=== PATIENT | female | born 1975 | race Caucasian/White ===

== ENCOUNTER → 2020-05-26 12:03 | Outpatient (CLI) | payer OTHER, SELFPAY ==
--- NOTE | ~2020-05-26 | MM_ITS ---
EXAMINATION: MM screening [place] BI w magen HISTORY: Screening TECHNIQUE: Craniocaudal and mediolateral oblique 3-D tomosynthesis images were obtained and synthetic 2-D images were generated. CAD analysis was submitted and interpreted. COMPARISON: 04/15/2013 BREAST PARENCHYMAL COMPOSITION: There are scattered areas of fibroglandular density. FINDINGS: There is no evidence of suspicious mass, calcification, or architectural distortion to sugg est malignancy in either breast. There has been no suspicious interval change. IMPRESSION: 1. No mammographic evidence of malignancy. 2. Recommend routine screening mammography in one year. BI-RADS Category 1: Negative Reviewed, dictated and finalized at location A.
== END ==
PROVIDERS: Visit Provider Obstetrics & Gynecology
DX: Z12.31 Encounter for screening mammogram for malignant neoplasm of breast (principal)
CPT/HCPCS: 77063; 77067

== ENCOUNTER 2020-11-29 17:19 | Outpatient (CLI) | payer OTHER, SELFPAY | END 2020-11-29 17:20 | disposition home or self-care (01) | LOC: ANHCOVIDVC 17:20 | PROVIDERS: PCP Family Medicine | DX: Z23 Encounter for immunization (principal) | CPT/HCPCS: 0001A; 91300 ==

== ENCOUNTER 2020-12-20 17:16 | Outpatient (CLI) | payer OTHER, SELFPAY | END 2020-12-20 17:17 | disposition home or self-care (01) | LOC: ANHCOVIDVC 17:16 | PROVIDERS: PCP Family Medicine | DX: Z23 Encounter for immunization (principal) | CPT/HCPCS: 0002A; 91300 ==

== ENCOUNTER 2022-11-21 15:30 | Outpatient (RCR) | payer OTHER, SELFPAY | END 2022-11-21 17:27 | disposition home or self-care (01) | LOC: ANHDMC 15:30 | PROVIDERS: PCP Family Medicine; Visit Provider Nurse Practitioner Gerontology | DX: E11.9 Type 2 diabetes mellitus without complications (principal); Z71.89 Other specified counseling | CPT/HCPCS: G0108 ==

== ENCOUNTER 2022-12-25 00:20 | Day surgery (SDC) | payer OTHER, SELFPAY ==
[2022-12-08 15:37] VITALS: BMI 41.6
[2022-12-25 09:10] VITALS: BP 139/67; PULSE 75; RESP 18; TEMP 36.2; O2SAT 100; BMI 42.4
[2022-12-25] MEDS: LACTATED RINGERS 1,000 ML 150 ML IV CONT (09:30)
[2022-12-25 09:31] LABS: Glucose Point of Care 107 mg/dl (65-105)
--- NOTE | 2022-12-25 09:37 | PM.HPGS ---
History of Present Illness History of Present Illness Consent: Risks, benefits, and alternatives have been discussed and questions answered. Patient agrees to proceed with procedure. Chief complaint: neoplasm screening Narrative: Dayna Hammonds is a 47 year old female Presents for colonoscopy. Patient reports his current weight appetite and bowel movements are normal. Patient denies abdominal pain. She has had no bleeding. Patient's family history is significant mother had colon cancer. Patient's previous colonoscopy 2016 was unremarkable. Review of Systems Review of Systems: Review of systems noncontributory. [facility] Past Medical History Medical History Benign hypertension without CHF Diabetes mellitus Mixed hyperlipidemia Family History Family History Father Diabetes mellitus Hypertension Mother Diabetes mellitus Hypertension Carcinoma of colon Social History Social History (Updated 10/24/22 @ 15:55 by Elodia Obregon MA) Social History: Smoking status: Never smoker Second hand tobacco smoke exposure: No Alcohol intake: never Substance use: never Substance use type: does not use Living arrangements: with family Occupation/Education: occupation Additional occupation/education comments: customer service Gender identity (if verbalized by the patient): Female Sexual Orientation (if Verbalized by the Patient): Straight or Heterosexual Spiritual care concerns: No Meds Home Medications and Allergies Home Medications Medication Instructions Recorded Confirmed Type blood-glucose meter #1 ea 01/17/22 12/25/22 Rx blood sugar diagnostic (OneTouch #100 ea 01/25/22 12/25/22 Rx Ultra Test strips) lancets (OneTouch UltraSoft #200 ea 07/25/22 12/25/22 Rx Lancets) empagliflozin 10 mg tablet See Rx Instructions .Route 10/20/22 12/25/22 Rx (Jardiance) .COMPLEX #90 tabs atorvastatin 20 mg tablet 20 mg PO QHS #90 tabs 10/24/22 12/25/22 Rx blood sugar diagnostic (OneTouch #100 ea 10/24/22 12/25/22 Rx Verio test strips) blood-glucose meter (OneTouch #1 ea 10/24/22 12/25/22 Rx Verio Flex Meter) lisinopril 10 mg tablet See Rx Instructions .Route 11/24/22 12/25/22 Rx .COMPLEX #90 tabs Allergies Allergy/AdvReac Type Severity Reaction Status Date / Time No Known Allergies Allergy Mild Verified 12/25/22 09:15 Vital Signs Vital Signs - 24 hr 12/25/22 09:10 Temperature 97.1 F L Pulse Rate 75 Respiratory Rate 18 Blood Pressure 139/67 Pulse Oximetry 100 Oxygen Delivery Room Air Exam Narrative: Physical exam reveals patient to be alert. Vital signs stable. HEENT exam is unremarkable. Patient is anicteric. Lungs are clear to auscultation and percussion. Heart is without murmur or extra sounds. Abdomen bowel sounds are present soft nontender with no organomegaly. Digital external rectal exam is normal. Assessment and Plan Assessment and plan (1) Family history of colon cancer in mother: Code(s): Z80.0 - Family history of malignant neoplasm of digestive organs Status: Acute Assessment and Plan: Patient's mother has had colon cancer. For this reason screening colonoscopy is advised 5 year intervals. Further recommendations will be given after endoscopy.
[2022-12-25] MEDS: SIMETHICONE ORAL SUSPENSION 20 MG/0.3 ML 30 ML BOTTLE 0.6 ML IRRIGATION (10:36)
[2022-12-25 10:44] VITALS: BP 119/74; PULSE 88; RESP 20; O2SAT 97
[2022-12-25 10:54] VITALS: BP 127/71; PULSE 74; RESP 18; O2SAT 98
[2022-12-25 11:04] VITALS: BP 129/77; PULSE 76; RESP 18; O2SAT 99
== END 2022-12-25 11:13 | disposition home or self-care (01) ==
PROVIDERS: PCP Family Medicine; Visit Provider Internal Medicine Gastroenterology
PROC: 0DJD8ZZ Inspection of Lower Intestinal Tract, Via Natural or Artificial Opening Endoscopic (ICD-10-PCS; CPT 45378; principal; 2022-12-25 10:30)
DX: Z12.11 Encounter for screening for malignant neoplasm of colon (principal); K63.5 Polyp of colon; K64.8 Other hemorrhoids; Z80.0 Family history of malignant neoplasm of digestive organs; I10 Essential (primary) hypertension; E11.9 Type 2 diabetes mellitus without complications; E78.2 Mixed hyperlipidemia; Z79.84 Long term (current) use of oral hypoglycemic drugs
CPT/HCPCS: 45385; 82948; 88305; J2704; J7120

== ENCOUNTER 2023-06-27 08:38 | Outpatient (CLI) | payer OTHER, SELFPAY ==
--- NOTE | 2023-07-18 10:31 | WPDHOMESLEEP ---
Sleep Study - Home Unattended Date of Study: 06/27/23 Ordering Provider: Amita Eller PA-C Interpreting Provider: Nan Gale, DO Home Sleep Study Type: Watch PAT Height: 1.55 m Weight: 101.605 kg Body Mass Index: 42.3 Neck Circumference (inches): [address]: 1 Reason for Sleep Study Daytime hypersomnia, abnormal labs Sleep History Patient is a 47-year-old female with hypertension, hyperlipidemia, type 2 diabetes, seasonal allergies have morbid obesity that had a sleep study ordered by her primary care for evaluation of sleep apnea. The patient denies awakening from sleep short of breath. She rarely awakens at night with heartburn, belching cough. He frequently snores and is occasionally loud enough that others complain. She constantly has trouble sleeping when she has a cold. She denies waking gasping for air throughout the night. She rarely has breathing problems at night observed by herself or others. She denies sweating excessively at night. She denies having heart palpitations or irregular heartbeats during the night. She rarely falls asleep during the day but never while driving. She denies sleep paralysis, cataplexy and hypnagogic / hypnopompic hallucinations. She denies having trouble at school or work due to sleepiness. She denies feeling afraid of going to sleep. She rarely has nightmares. She occasionally remembers her dreams. She occasionally has thoughts racing through her mind. She rarely feels sad or depressed. She occasionally has anxiety. She rarely has muscular tension. She denies noticing parts of her body jerk. She denies kicking during the night. She denies having crawling and aching feelings her legs and denies having leg pain during the night. She occasionally grinds her teeth during sleep but never awakens with morning jaw pain. She is frequently bothered by pain during the day and frequently awakened by pain during night. She rarely wakes up feeling stiff morning. She rarely wakes up with sore or achy muscles. She occasionally wakes up with pain in the neck, spine other joints. She goes to bed between 10-10:30 p.m. on weekdays and between 10:30 p.m. to 11:00 p.m. the weekends. It takes her 15 minutes to fall asleep. She wakes up 2-3 times throughout the night to urinate or adjust positions. She is able to fall back asleep within 5 minutes. She wakes up at 5:45 a.m. on weekdays and between 6-6:30 a.m. weekends. She typically gets 7 8 hours of sleep per night. She does not stay after waking up morning. She currently lives with her and daughter. She denies consuming any caffeinated beverages within 2 hours of bedtime. She denies engaging in physical exercise before bedtime. She will read before falling asleep. She denies taking naps in the afternoon or the evening. She will have 1 caffeinated beverage per day at most. She denies tobacco, alcohol and recreational drug use. [facility] Past Medical History Medical History Benign hypertension without CHF Diabetes mellitus Mixed hyperlipidemia Family History Family History Father Diabetes mellitus Hypertension Mother Diabetes mellitus Hypertension Carcinoma of colon Social History Social History Social History: Smoking status: Never smoker Second hand tobacco smoke exposure: No Alcohol intake: never Substance use: never Substance use type: does not use Living arrangements: with family Occupation/Education: occupation Additional occupation/education comments: customer service Gender identity (if verbalized by the patient): Female Sexual Orientation (if Verbalized by the Patient): Straight or Heterosexual Spiritual care concerns: No Medications Home Medications Medication Instructions Recorded Confirmed
[2023-07-18 10:43] VITALS: BMI 42.3
== END 2023-06-28 11:02 | disposition home or self-care (01) ==
LOC: ANHCSM 08:39
PROVIDERS: PCP Family Medicine; Visit Provider Physician Assistant
DX: G47.33 Obstructive sleep apnea (adult) (pediatric) (principal); I10 Essential (primary) hypertension; E78.5 Hyperlipidemia, unspecified; E11.9 Type 2 diabetes mellitus without complications; E66.01 Morbid (severe) obesity due to excess calories; Z68.41 Body mass index [BMI] 40.0-44.9, adult
CPT/HCPCS: 95800

== ENCOUNTER 2024-07-18 15:19 | Outpatient (CLI) | payer OTHER, SELFPAY ==
--- NOTE | ~2024-07-18 | US_ITS ---
EXAMINATION: US pelvic complete DATE: 07/18/2024 15:42 INDICATION: Displacement of intrauterine device. TECHNIQUE: Multiple transabdominal sonographic images of the pelvis were obtained. COMPARISON: Ultrasound 05/02/2012 FINDINGS: The uterus measures 12.5 x 5.4 x 6.6 cm. There is no free fluid in the pelvis. The endometrial comple x measures 6 mm in thickness. There is an intrauterine device in expected position. There is a 4.0 cm subserosal fibroid. There are 1.9 cm and 1.4 cm subserosal fibroids. The right ovary measures 2.3 x 2.1 x 3.2 cm. The left ovary measures 2.8 x 3.0 x 3.7 cm. IMPRESSION: 1. Intrauterine device in expected position. 2. Uterine fibroids. Reviewed, dictated and finalized at location A. EL SNIPPER
== END 2024-07-18 15:20 | disposition home or self-care (01) ==
LOC: MICIMG 15:20
PROVIDERS: PCP Nurse Practitioner Women's Health; Visit Provider Nurse Practitioner Women's Health
DX: T83.32XA Displacement of intrauterine contraceptive device, initial encounter (principal); D25.9 Leiomyoma of uterus, unspecified
CPT/HCPCS: 76856

== ENCOUNTER 2024-11-11 15:40 | Outpatient (CLI) | payer OTHER, SELFPAY ==
--- NOTE | ~2024-11-11 | MM_ITS ---
EXAMINATION: MM screening [place] BI w magen HISTORY: Screening mammogram TECHNIQUE: Craniocaudal and mediolateral oblique 3-D tomosynthesis images were obtained and synthetic 2-D images were generated. CAD analysis was submitted and interpreted. COMPARISON: 05/26/2020 BREAST PARENCHYMAL COMPOSITION:Not Dense. There are scattered areas of fibroglandular density. FINDINGS: No suspicious mass, calcification, or architectural distortion are identified in either rommel ast to suggest malignancy. There has been no suspicious interval change. IMPRESSION: No mammographic evidence of malignancy. Recommend routine screening mammography in one year. BI-RADS Category 1: Negative Reviewed, dictated and finalized at location . [employer]
== END 2024-11-11 15:41 | disposition home or self-care (01) ==
LOC: MICIMG 15:42
PROVIDERS: PCP Nurse Practitioner Women's Health; Visit Provider Obstetrics & Gynecology Gynecology
DX: Z12.31 Encounter for screening mammogram for malignant neoplasm of breast (principal)
CPT/HCPCS: 77063; 77067